=== PATIENT | female | born 1980 | race Two or more races ===

== ENCOUNTER 2022-07-27 11:42 | Emergency (ER) | payer OTHER ==
[~2022-07-27] VITALS: Ht 157.5 cm; Wt 61.4 kg
[2022-07-27] MEDS ORDERED: HYDROcodone/acetaminophen 10/325mg tab PO ONE (12:45)
[2022-07-27] MEDS ORDERED: ibuprofen tablet 400 MG TABLET PO ONE (12:45)
[2022-07-27 12:51] VITALS: BP 130/77
[2022-07-27] MEDS ORDERED: HYDR-3972 PO (14:15)
[2022-07-27] MEDS ORDERED: IBUP-1986 PO (14:15)
== END 2022-07-27 15:00 | disposition home or self-care (01) ==
LOC: ER 11:43
DX: S82.142A Displaced bicondylar fracture of left tibia, initial encounter for closed fracture (principal); S93.401A Sprain of unspecified ligament of right ankle, initial encounter; Z79.899 Other long term (current) drug therapy; V87.7XXA Person injured in collision between other specified motor vehicles (traffic), initial encounter; Y93.89 Activity, other specified; Y92.488 Other paved roadways as the place of occurrence of the external cause; Y99.8 Other external cause status
CPT/HCPCS: 29540; 73590; 73610; 99284; L1930; 29515; A6446; A6449

== ENCOUNTER 2022-08-08 14:01 | Emergency (ER) | payer OTHER ==
[~2022-08-08] VITALS: Ht 162.6 cm; Wt 61.4 kg
[~2022-08-08 14:01] MED LIST: IBUP-1986 PO
[2022-08-08 14:07] VITALS: BP 128/76
[2022-08-08] MEDS ORDERED: HYDR-3965 PO (16:55)
[2022-08-08] MEDS ORDERED: NAPR-56 PO (16:55)
== END 2022-08-08 17:27 | disposition home or self-care (01) ==
LOC: ER 14:01
DX: S82.302D Unspecified fracture of lower end of left tibia, subsequent encounter for closed fracture with routine healing (principal); X58.XXXD Exposure to other specified factors, subsequent encounter; Z79.899 Other long term (current) drug therapy
CPT/HCPCS: 99283

== ENCOUNTER 2024-01-01 10:59 | Emergency (ER) | payer OTHER ==
[~2024-01-01] VITALS: Ht 167.6 cm; Wt 56.8 kg
[2024-01-01 12:07] LABS: URINE HCG NEGATIVE (NEG)
[2024-01-01 12:29] LABS: BASOPHILS % (AUTO) 0.3 % (0-1); EOSINOPHILS % (AUTO) 0 % (0-6); HEMATOCRIT 37.9 % (35.0-45.0); HEMOGLOBIN 12.4 g/dl (12.0-16.0); LYMPHOCYTES # (AUTO) 1.6 X10'3 (1.1-4.8); LYMPHOCYTES % (AUTO) 9.5 % (21-51); MEAN CORPUSCULAR HGB CONC 32.6 g/dL (33.0-36.5); MEAN CORPUSCULAR VOLUME 85.8 FL (78-98); MEAN PLATELET VOLUME 8.9 FL (7.4-10.4); MONOCYTES # (AUTO) 1.5 X10'3 (0-0.9); MONOCYTES % (AUTO) 9.2 % (2-12); NEUTROPHILS # (AUTO) 13.2 X10'3 (1.8-7.7); PLATELET COUNT 294 X10'3 (140-440); RED BLOOD COUNT 4.42 X10'6 (4.20-5.60); RED CELL DISTRIBUTION WIDTH 17.2 % (11.5-14.5); WHITE BLOOD COUNT 16.3 X10'3 (4.5-11.0)
[2024-01-01 12:32] LABS: ALBUMIN 3.2 G/DL (3.4-5.0); ANION GAP 11 (8-16); BLOOD UREA NITROGEN 11 MG/DL (7-18); BUN/CREATININE RATIO 12.2 (10.0-20.0); CHLORIDE 98 MMOL/L (99-107); GLUCOSE 91 MG/DL (70-104); SODIUM 135 MMOL/L (135-145); eCRCL 74 ML/MIN; eGFR 69 ML/MIN
[2024-01-01 12:45] LABS: BILIRUBIN,URINE NEGATIVE (Neg); CLARITY,URINE CLOUDY (Clear); COLOR,URINE YELLOW (Yellow); GLUCOSE, URINE NEGATIVE (Neg); KETONES,URINE 15 mg/dl (Neg); LEUKOCYTE ESTERASE ,URINE TRACE (Neg); NITRITES, URINE POSITIVE (Neg); OCCULT BLOOD,URINE TRACE-INTACT (Neg); PROTEIN,URINE 30 mg/dl (Neg); UROBILINOGEN,URINE 0.2 E.U/dL (0.2-1.0)
[2024-01-01 12:52] LABS: UA COLLECTION TYPE CLN CATCH MIDSTREAM
[2024-01-01] MEDS: normal saline 1000ML IV soln IVB ONE (12:53)
[2024-01-01 12:57] LABS: MUCUS STRANDS FEW /LPF (Neg); SQUAMOUS EPITHELIAL CELL,UR MANY /LPF (FEW)
[2024-01-01 13:00] LABS: BACTERIA,URINE 4+ /HPF (Neg); RBC,URINE 0-2 /HPF (0-2)
[2024-01-01] MEDS: CefTRIAXone/D5W-Rocephin 1gm 50 ML IV ONE (13:13)
[2024-01-01] MEDS: potassium Cl 20 mEq SR tablet PO STA (13:13)
[2024-01-01] MEDS ORDERED: AMOX-580 PO (13:37)
[2024-01-01 13:58] VITALS: BP 112/63; PULSE 91; RESP 16; TEMP 98.7; O2SAT 97
== END 2024-01-01 13:59 | disposition home or self-care (01) ==
LOC: ER 11:00
DX: N39.0 Urinary tract infection, site not specified (principal); E87.6 Hypokalemia; Z79.2 Long term (current) use of antibiotics; Z79.1 Long term (current) use of non-steroidal anti-inflammatories (NSAID)
CPT/HCPCS: 36415; 80048; 81001; 81025; 85025; 96365; 99284; J0696; J7030